=== PATIENT | female | born 1970 | race American Indian/Alaskan Native ===

== ENCOUNTER 2018-03-01 16:15 | Inpatient (IN) | payer OTHER ==
[2018-03-01] MEDS ORDERED: ACTIVASE ONE (16:18)
[2018-03-01] MEDS ORDERED: NACL 0.9% 0 ML ONE (16:19)
--- NOTE | 2018-03-01 16:28 | Emergency Department Report ---
ED Neuro Deficit HPI - General Chief Complaint: Weakness Stated Complaint: POSS STROKE Time Seen by Provider: 03/01/18 16:26 Source: patient, family, EMS (ems notes not available at time of chart dictation), RN notes reviewed Mode of arrival: Stretcher Limitations: Physical Limitation - History of Present Illness Initial Comments: This is a 47-year-old female who is unknown as provider previously, has a past medical history of hypothyroidism. Brought to the hospital by EMS as a possible code stroke. Patient complains of stuttering speech, and right-sided weakness and numbness. Last known well time is 3:05 PM. Symptoms constant, did not radiate anywhere, and did not have exacerbating or relieving factors. -: Sudden Location: speech, right arm, right leg Presenting Symptoms: Present: Weak/Paralyzed One Side, Unable to Speak Clearly History of same: No Place: other (driving) Severity: moderate Improves With: none Worsens With: none On Anticoagulants: No Context: sudden onset Associated Symptoms: headaches, malise, weakness. denies: confusion, chest pain , cough, diaphoresis, fever/chills, loss of appetite, nausea/vomiting, vertigo, seizures, shortness of breath, syncope - Related Data Home Medications: Home Medications Medication Instructions Recorded Confirmed Last Taken Synthroid 0.05 mcg PO DAILY 03/01/18 03/01/18 Unknown Allergies/Adverse Reactions: Allergies Allergy/AdvReac Type Severity Reaction Status Date / Time No Known Allergies Allergy Verified 03/01/18 16:40 ED Review of Systems ROS: Stated complaint: POSS STROKE Other details as noted in HPI Comment: All other systems reviewed and negative Cardiovascular: denies: chest pain Gastrointestinal: denies: abdominal pain, hematemesis, melena, hematochezia Neurological: headache, weakness, other Psychiatric: anxiety ED Past Medical Hx - Medications Home Medications: Home Medications Medication Instructions Recorded Confirmed Last Taken Type Synthroid 0.05 mcg PO DAILY 03/01/18 03/01/18 Unknown History ED Neuro Physical Exam - General Limitations: Physical Limitation General appearance: alert, anxious, obese Suspected Stroke: Yes - Head Head exam: Present: atraumatic - Eye Eye exam: Present: normal appearance, PERRL, EOMI, other (visual acuity intact to finger counting, color perception, reading at a close distance). Absent: nystagmus - ENT ENT exam: Present: normal exam, normal orophraynx, normal external ear exam - Neck Neck exam: Present: normal inspection, full ROM. Absent: tenderness, meningismus - Respiratory Respiratory exam: Present: normal lung sounds bilaterally. Absent: respiratory distress, wheezes, rales, rhonchi, stridor, decreased breath sounds - Cardiovascular Cardiovascular Exam: Present: regular rate, normal rhythm, normal heart sounds. Absent: systolic murmur, diastolic murmur, rubs, gallop - GI/Abdominal GI/Abdominal exam: Present: soft, normal bowel sounds. Absent: distended, tenderness, guarding, rigid, pulsatile mass - Extremities Exam Extremities exam: Present: normal inspection, full ROM, normal capillary refill , other (2+ pulses noted in the bilateral upper, lower extremities. Compartments soft. No long bony tenderness. The pelvis is stable.). Absent: calf tenderness - Back Exam Back exam: Present: normal inspection, full ROM. Absent: CVA tenderness (R), paraspinal tenderness - Neurological Exam Neurological exam: Present: alert, oriented X3, motor sensory deficit (there is 4 out of 5 strength right upper, right lower extremity. There is 5 out of 5 strength left upper, left lower extremity reports decreased sensation to light touch right upper, right lower extremity), other (extraocular movements are intact bilaterally. The tongue is midline. Shoulder shrug is intact bilaterally. Normal phonation. Normal elevation of the palate. Hearing intact bilaterally. Patient is able to speak in full sentences, but is stuttering.) - NIHSS Assessment Interval: Baseline 1a. Level of Consciousness: alert 1b. LOC Questions: answers correctly 1c. LOC Commands: performs tasks correctly 2. Best Gaze: normal 3. Visual: no visual loss 4. Facial Palsy: normal symmetrical movement 5b. Motor Arm Right: drift 5a. Motor Arm Left: no drift 6a. Motor Leg Left: no drift 6b. Motor Leg Right: drift 7. Limb Ataxia: present 1 limb 8. Sensory: mild/moderate sensory loss 9. Best Language: no aphasia 10. Dysarthria: mild/moderate dysarthria 11. Extinction/Inattention: no abnormality Total Score: 5 Stroke Severity: Moderate Stroke - Psychiatric Psychiatric exam: Present: anxious ED Course Vital Signs 03/01/18 16:43 Temperature 97.9 F Pulse Rate 68 Respiratory 16 Rate Blood Pressure 127/91 O2 Sat by Pulse 100 Oximetry - Lab Data Result diagrams: 03/01/18 16:35 03/01/18 16:35 Lab Results 03/01/18 03/01/18 03/01/18 Range/Units 16:35 16:35 16:35 WBC 6.6 (4.5-11.0) K/mm3 RBC 4.02 (3.65-5.03) M/mm3 Hgb 13.4 (10.1-14.3) gm/dl Hct 38.6 (30.3-42.9) % MCV 96 (79-97) fl MCH 33 H (28-32) pg MCHC 35 H (30-34) % RDW 13.5 (13.2-15.2) % Plt Count 204 (140-440) K/mm3 Lymph % (Auto) 38.7 H (13.4-35.0) % [place] % (Auto) 8.5 H (0.0-7.3) % Eos % (Auto) 2.3 (0.0-4.3) % Baso % (Auto) 0.6 (0.0-1.8) % Lymph # 2.5 (1.2-5.4) K/mm3 [place] # 0.6 (0.0-0.8) K/mm3 Eos # 0.2 (0.0-0.4) K/mm3 Baso # 0.0 (0.0-0.1) K/mm3 Seg Neutrophils % 49.9 (40.0-70.0) % Seg Neutrophils # 3.3 (1.8-7.7) K/mm3 PT 12.3 (12.2-14.9) Sec. INR 0.87 (0.87-1.13) APTT 27.4 (24.2-36.6) Sec. Thrombin Time (15.1-19.6) Sec. Sodium 142 (137-145) mmol/L Potassium 3.7 (3.6-5.0) mmol/L Chloride 105.7 (98-107) mmol/L Carbon Dioxide 24 (22-30) mmol/L Anion Gap 16 mmol/L BUN 15 (7-17) mg/dL Creatinine 0.8 (0.7-1.2) mg/dL Estimated GFR > 60 ml/min BUN/Creatinine Ratio 19 % Glucose 113 H (65-100) mg/dL POC Glucose (70-105) Calcium 9.0 (8.4-10.2) mg/dL Troponin T < 0.010 (0.00-0.029) ng/mL 03/01/18 03/01/18 Range/Units 16:35 16:40 WBC (4.5-11.0) K/mm3 RBC (3.65-5.03) M/mm3 Hgb (10.1-14.3) gm/dl Hct (30.3-42.9) % MCV (79-97) fl MCH (28-32) pg MCHC (30-34) % RDW (13.2-15.2) % Plt Count (140-440) K/mm3 Lymph % (Auto) (13.4-35.0) % [place] % (Auto) (0.0-7.3) % Eos % (Auto) (0.0-4.3) % Baso % (Auto) (0.0-1.8) % Lymph # (1.2-5.4) K/mm3 [place] # (0.0-0.8) K/mm3 Eos # (0.0-0.4) K/mm3 Baso # (0.0-0.1) K/mm3 Seg Neutrophils % (40.0-70.0) % Seg Neutrophils # (1.8-7.7) K/mm3 PT (12.2-14.9) Sec. INR (0.87-1.13) APTT (24.2-36.6) Sec. Thrombin Time 17.5 (15.1-19.6) Sec. Sodium (137-145) mmol/L Potassium (3.6-5.0) mmol/L Chloride (98-107) mmol/L Carbon Dioxide (22-30) mmol/L Anion Gap mmol/L BUN (7-17) mg/dL Creatinine (0.7-1.2) mg/dL Estimated GFR ml/min BUN/Creatinine Ratio % Glucose (65-100) mg/dL POC Glucose 102 (70-105) Calcium (8.4-10.2) mg/dL Troponin T (0.00-0.029) ng/mL - EKG Data -: EKG Interpreted by Me When compared to previous EKG there are: previous EKG unavailable 03/01/18 18:14 Sinus, 60 bpm, borderline left axis deviation, incomplete right bundle branch block, atrial enlargement, no chest pain, not a STEMI - Radiology Data Radiology results: report reviewed, image reviewed Noncontrast CT scan of the brain is negative - Medical Decision Making Differential diagnosis, including but not limited to: Migraine, Clarence paralysis, conversion disorder Assessment and plan: 47-year-old female with persistent stuttering and now resolved right upper extremity, right lower extremity weakness. She is currently speaking and slow sentences, only stuttering, but is not dysarthric per se. A code stroke is called overhead, a noncontrast CT scan of the brain is read as negative, and the patient is also interviewed by stroke neurologist, Dr. Mcclendon. Given that her symptoms have resolved with the exception of stuttering speech, which is very unlikely to be a true CVA, it is the recommendation of consulting neurology that the patient not be a TPA candidate. Given that she has no significant NIH score at this time, and is noted to be smiling and laughing with a friend/family member, I think that this plan of care is reasonable, especially given resolved weakness in the right upper, right lower extremity. The case is presented to the Hospital physician, Dr. Bri Ballesteros; he accepted the patient to his service. Not a TPA candidate given resolution of symptoms. Aspirin ordered. - Core Measures Measure Exclusions: not indicated - Thrombolytic Inclusion/Exclusion Thrombolytic Contraindications: Rapidily Improving s/s Critical care attestation.: If time is entered above; I have spent that time in minutes in the direct care of this critically ill patient, excluding procedure time. ED Disposition Clinical Impression: Speech disturbance, TIA (transient ischemic attack) Disposition: OP ADMIT IP TO THIS HOSP Is pt being admited?: Yes Does the pt Need Aspirin: Yes Condition: Good
--- NOTE | 2018-03-01 16:47 | Cat Scan Report ---
FINAL REPORT PROCEDURE: CT HEAD/BRAIN WO CON TECHNIQUE: Computerized tomography of the head was performed without contrast material. HISTORY: neuro deficits < 6hrs or sx present upon awakening COMPARISON: No prior studies are available for comparison. FINDINGS: Brain: Brain density appears normal. No evidence of intracranial hemorrhage. No parenchymal hemorrhage, mass lesions or mass effect are seen. No abnormal extraxial fluid collects or masses are seen. Ventricles: Ventricles are normal size and are midline. Bone Windows: No evidence of skull fracture. Paranasal sinuses: There is patchy mucosal disease in a few of the ethmoid air cells and minimally in the sphenoid sinuses and right maxillary sinus. Visualized portions of the paranasal sinuses otherwise appear clear. Mastoid air cells: Clear IMPRESSION: Negative unenhanced CT of the brain. If symptoms persist or worsen consider follow-up CT scan or MRI for further evaluation. Mild paranasal sinus disease as described.
[2018-03-01 16:49] LABS: Basophils % (Auto) 0.6 % (0.0-1.8); Eosinophils # (Auto) 0.2 K/mm3 (0.0-0.4); Eosinophils % (Auto) 2.3 % (0.0-4.3); Hematocrit 38.6 % (30.3-42.9); Hemoglobin 13.4 gm/dl (10.1-14.3); Lymphocytes # (Auto) 2.5 K/mm3 (1.2-5.4); Lymphocytes % (Auto) 38.7 % (13.4-35.0); Mean Corpuscular HGB Conc 35 % (30-34); Mean Corpuscular Hemoglobin 33 pg (28-32); Mean Corpuscular Volume 96 fl (79-97); Monocytes # (Auto) 0.6 K/mm3 (0.0-0.8); Monocytes % (Auto) 8.5 % (0.0-7.3); Platelet Count 204 K/mm3 (140-440); Red Blood Count 4.02 M/mm3 (3.65-5.03); Red Cell Distribution Width 13.5 % (13.2-15.2)
[2018-03-01 16:55] LABS: INR 0.87 (0.87-1.13)
[2018-03-01 16:56] LABS: Partial Thromboplastin Time 27.4 Sec. (24.2-36.6)
[2018-03-01 16:58] LABS: BUN/Creatinine Ratio 19; Blood Urea Nitrogen 15 mg/dL (7-17); Hemolysis Index 7
[2018-03-01] MEDS ORDERED: BABY ASPIRIN PO ONE (18:16)
--- NOTE | 2018-03-01 23:27 | History and Physical Report ---
History of Present Illness Date of examination: 03/01/18 Date of admission: 03/01/18 18:16 Chief complaint: Chief complaint: Right-sided weakness and dysarthria since 11:30 AM History of present illness: History of present illness: 47-year-old -[place] female with history of hypothyroidism comes in for right-sided weakness since 11:30 AM along with the dysarthria. The weakness is improved while in the emergency room but still persists. Dysarthria persists. Tele neurology was consulted. TPA was considered but not given because the neurology was in favor of TIA. No exacerbating or relieving factors Past History Past Medical History: hypothyroidism Past Surgical History: No surgical history Social history: no significant social history, lives with family, full code Family history: hypertension Medications and Allergies Allergies Allergy/AdvReac Type Severity Reaction Status Date / Time No Known Allergies Allergy Verified 03/01/18 16:40 Home Medications Medication Instructions Recorded Confirmed Last Taken Type Synthroid 0.05 mcg PO DAILY 03/01/18 03/01/18 Unknown History Review of Systems All systems: negative Constitutional: no weight loss, no weight gain, no fever, no chills Ears, nose, mouth and throat: no hoarseness, no sore throat, no swelling in mouth, no swelling in throat Breasts: deferred Cardiovascular: no chest pain, no orthopnea, no palpitations, no rapid/ irregular heart beat, no edema, no syncope, no lightheadedness, no shortness of breath Respiratory: no cough, no cough with sputum, no excessive sputum, no hemoptysis , no shortness of breath, no dyspnea on exertion Gastrointestinal: no nausea, no vomiting, no diarrhea, no constipation, no change in bowel habits Genitourinary Female: no dysuria, no urinary frequency, no urgency Musculoskeletal: no neck stiffness, no neck pain, no shooting arm pain, no arm numbness/tingling, no low back pain, no shooting leg pain, no leg numbness/ tingling, no redness of joints Integumentary: no rash, no pruritis, no redness, no sores, no wounds, no jaundice Neurological: paralysis, weakness, change in speech, gait dysfunction, no parathesias, no numbness, no tingling, no seizures, no syncope Psychiatric: no anxiety, no memory loss, no change in sleep habits, no sleep disturbances, no insomnia Endocrine: no cold intolerance, no heat intolerance, no polyphagia, no excessive thirst Hematologic/Lymphatic: no easy bruising, no easy bleeding Allergic/Immunologic: no urticaria, no allergic rhinitis, no wheezing Exam - Constitutional Vitals: Temp Pulse Resp BP Pulse Ox 98.2 F 73 16 124/95 98 03/01/18 21:55 03/01/18 21:54 03/01/18 20:11 03/01/18 21:54 03/01/18 21:54 General appearance: Present: no acute distress, well-nourished - EENT Eyes: Present: PERRL ENT: hearing intact, clear oral mucosa - Neck Neck: Present: supple, normal ROM - Respiratory Respiratory effort: normal Respiratory: bilateral: CTA - Cardiovascular Heart rate: 60 Rhythm: regular Heart Sounds: Present: S1 & S2. Absent: rub, click - Extremities Extremities: no ischemia, pulses intact, pulses symmetrical, No edema Peripheral Pulses: within normal limits - Abdominal General gastrointestinal: Present: soft, non-tender, non-distended, normal bowel sounds Female genitourinary: Present: normal - Integumentary Integumentary: Present: clear, warm, dry - Musculoskeletal Musculoskeletal: right sided weakness (right upper extremity and right lower extremity 3/5 power dysarthria present) - Psychiatric Psychiatric: appropriate mood/affect, intact judgment & insight - Neurologic Neurologic: CNII-XII intact, moves all extremities, other (gait instability) - Allied Health Allied health notes reviewed: nursing, case management Results - Labs CBC & Chem 7: 03/01/18 16:35 03/01/18 16:35 Labs: Laboratory Last Values WBC 6.6 K/mm3 (4.5-11.0) 03/01/18 16:35 RBC 4.02 M/mm3 (3.65-5.03) 03/01/18 16:35 Hgb 13.4 gm/dl (10.1-14.3) 03/01/18 16:35 Hct 38.6 % (30.3-42.9) 03/01/18 16:35 MCV 96 fl (79-97) 03/01/18 16:35 MCH 33 pg (28-32) H 03/01/18 16:35 MCHC 35 % (30-34) H 03/01/18 16:35 RDW 13.5 % (13.2-15.2) 03/01/18 16:35 Plt Count 204 K/mm3 (140-440) 03/01/18 16:35 Lymph % (Auto) 38.7 % (13.4-35.0) H 03/01/18 16:35 [place] % (Auto) 8.5 % (0.0-7.3) H 03/01/18 16:35 Eos % (Auto) 2.3 % (0.0-4.3) 03/01/18 16:35 Baso % (Auto) 0.6 % (0.0-1.8) 03/01/18 16:35 Lymph # 2.5 K/mm3 (1.2-5.4) 03/01/18 16:35 [place] # 0.6 K/mm3 (0.0-0.8) 03/01/18 16:35 Eos # 0.2 K/mm3 (0.0-0.4) 03/01/18 16:35 Baso # 0.0 K/mm3 (0.0-0.1) 03/01/18 16:35 Seg Neutrophils % 49.9 % (40.0-70.0) 03/01/18 16:35 Seg Neutrophils # 3.3 K/mm3 (1.8-7.7) 03/01/18 16:35 PT 12.3 Sec. (12.2-14.9) 03/01/18 16:35 INR 0.87 (0.87-1.13) 03/01/18 16:35 APTT 27.4 Sec. (24.2-36.6) 03/01/18 16:35 Thrombin Time 17.5 Sec. (15.1-19.6) 03/01/18 16:35 Sodium 142 mmol/L (137-145) 03/01/18 16:35 Potassium 3.7 mmol/L (3.6-5.0) 03/01/18 16:35 Chloride 105.7 mmol/L (98-107) 03/01/18 16:35 Carbon Dioxide 24 mmol/L (22-30) 03/01/18 16:35 Anion Gap 16 mmol/L 03/01/18 16:35 BUN 15 mg/dL (7-17) 03/01/18 16:35 Creatinine 0.8 mg/dL (0.7-1.2) 03/01/18 16:35 Estimated GFR > 60 ml/min 03/01/18 16:35 BUN/Creatinine Ratio 19 % 03/01/18 16:35 Glucose 113 mg/dL (65-100) H 03/01/18 16:35 POC Glucose 102 (70-105) 03/01/18 16:40 Calcium 9.0 mg/dL (8.4-10.2) 03/01/18 16:35 Troponin T < 0.010 ng/mL (0.00-0.029) 03/01/18 16:35 - Imaging and Cardiology EKG: report reviewed (normal sinus rhythm 60 per minute) Imaging and Cardiology: CT head IMPRESSION: Negative unenhanced CT of the brain. If symptoms persist or worsen consider follow-up CT scan or MRI for further evaluation. Mild paranasal sinus disease as described. Assessment and Plan Advance Directives: Yes (full code) VTE prophylaxis?: Chemical Plan of care discussed with patient/family: Yes - Patient Problems (1) Acute CVA (cerebrovascular accident) Current Visit: Yes Status: Acute Plan to address problem: Acute CVA versus TIA. More in favor of CVA or RIND(reversible ischemic neurological deficit) Aspirin and Plavix initiated MRI/MRA CDS and echocardiogram ordered (2) Hypothyroidism Current Visit: Yes Status: Chronic Qualifiers: Hypothyroidism type: acquired Qualified Code(s): E03.9 - Hypothyroidism, unspecified Plan to address problem: continue Synthroid Check TSH (3) DVT prophylaxis Current Visit: Yes Status: Acute Plan to address problem: Lovenox 40 mg subcutaneous daily
[2018-03-01] MEDS ORDERED: ZOFRAN IV PRN (23:37)
[2018-03-01] MEDS ORDERED: MORPHINE IV PRN (23:37)
[2018-03-01] MEDS ORDERED: PERCOCET 5/325 PO PRN (23:37)
[2018-03-01] MEDS ORDERED: AMBIEN PO PRN (23:37)
[2018-03-01] MEDS ORDERED: SODIUM CHLORIDE FLUSH SYRINGE 10 ML IV PRN (23:37)
[2018-03-02] MEDS: SYNTHROID PO SCH (06:18)
[2018-03-02 08:12] LABS: Basophils % (Auto) 0.5 % (0.0-1.8); Eosinophils # (Auto) 0.1 K/mm3 (0.0-0.4); Eosinophils % (Auto) 2.4 % (0.0-4.3); Hematocrit 40.4 % (30.3-42.9); Lymphocytes # (Auto) 2.1 K/mm3 (1.2-5.4); Lymphocytes % (Auto) 34.3 % (13.4-35.0); Mean Corpuscular HGB Conc 35 % (30-34); Mean Corpuscular Hemoglobin 33 pg (28-32); Mean Corpuscular Volume 96 fl (79-97); Monocytes # (Auto) 0.5 K/mm3 (0.0-0.8); Monocytes % (Auto) 7.6 % (0.0-7.3); Platelet Count 222 K/mm3 (140-440); Red Blood Count 4.23 M/mm3 (3.65-5.03); Red Cell Distribution Width 13.7 % (13.2-15.2)
[2018-03-02 08:32] LABS: Alanine Aminotransferase 13 units/L (7-56); BUN/Creatinine Ratio 17; Blood Urea Nitrogen 10 mg/dL (7-17); Calcium 9.2 mg/dL (8.4-10.2); Hemolysis Index 31
[2018-03-02] MEDS ORDERED: LEVOTHYROXINE PO SCH (10:00)
[2018-03-02] MEDS: ASPIRIN PO SCH (10:21)
[2018-03-02] MEDS: SODIUM CHLORIDE FLUSH SYRINGE 10 ML IV SCH ×2 (10:22→22:06)
[2018-03-02] MEDS: PLAVIX PO SCH (10:22)
[2018-03-02] MEDS: PEPCID PO SCH ×2 (10:22→22:06)
--- NOTE | 2018-03-02 13:48 | Progress Note ---
Assessment and Plan - Patient Problems (1) TIA (transient ischemic attack) Current Visit: Yes Status: Acute Plan to address problem: Patient has had a TIA. Still significant risk factors for CVA. Patient did take aspirin or refuse the Plavix. Therefore we'll continue aspirin. Would need to obtain lipid panel with goal of keeping LDL less than 70. Follow up at the [facility]. Patient was seen specialists for arm weakness and numbness. Spoke about risk factor reduction with weight loss exercise and a genetic component hyperlipidemia ratio has anticipated discharge in a.m. If MRI is normal. (2) Hypothyroidism Current Visit: Yes Status: Chronic Qualifiers: Hypothyroidism type: acquired Qualified Code(s): E03.9 - Hypothyroidism, unspecified History Interval history: Long discussion with patient about differences between TIA and CVA. Patient's symptoms have resolved. Lasted in total for approximately 3 hours. Patient still has increased risk factors including family history. Patient still has MRI pending and echo pending. Get those done today. Hospitalist Physical - Constitutional Vitals: Temp Pulse Resp BP Pulse Ox 98.1 F 68 18 119/90 97 03/02/18 08:33 03/02/18 08:33 03/02/18 08:33 03/02/18 08:33 03/02/18 12:47 General appearance: Present: no acute distress, well-nourished - EENT Eyes: Present: PERRL, EOM intact ENT: hearing intact, clear oral mucosa, dentition normal - Neck Neck: Present: supple, normal ROM - Respiratory Respiratory effort: normal Respiratory: bilateral: CTA - Cardiovascular Rhythm: regular Heart Sounds: Present: S1 & S2 - Extremities Extremities: no ischemia, pulses intact, pulses symmetrical, No edema, normal temperature, normal color, Full ROM Peripheral Pulses: within normal limits - Abdominal General gastrointestinal: soft, non-tender, non-distended, normal bowel sounds, no hypoactive bowel sounds, no absent bowel sounds, no hepatomegaly - Integumentary Integumentary: Present: clear, warm, dry. Absent: jaundice, rash, clammy - Psychiatric Psychiatric: appropriate mood/affect, intact judgment & insight, cooperative - Neurologic Neurologic: CNII-XII intact, no focal deficits, moves all extremities, other ( no focal deficits at all patient has regained strength 5 out of 5 upper and lower extremities.) Results - Labs CBC & Chem 7: 03/02/18 07:57 03/02/18 07:57 Labs: Laboratory Last Values WBC 6.1 K/mm3 (4.5-11.0) 03/02/18 07:57 RBC 4.23 M/mm3 (3.65-5.03) 03/02/18 07:57 Hgb 14.0 gm/dl (10.1-14.3) 03/02/18 07:57 Hct 40.4 % (30.3-42.9) 03/02/18 07:57 MCV 96 fl (79-97) 03/02/18 07:57 MCH 33 pg (28-32) H 03/02/18 07:57 MCHC 35 % (30-34) H 03/02/18 07:57 RDW 13.7 % (13.2-15.2) 03/02/18 07:57 Plt Count 222 K/mm3 (140-440) 03/02/18 07:57 Lymph % (Auto) 34.3 % (13.4-35.0) 03/02/18 07:57 [place] % (Auto) 7.6 % (0.0-7.3) H 03/02/18 07:57 Eos % (Auto) 2.4 % (0.0-4.3) 03/02/18 07:57 Baso % (Auto) 0.5 % (0.0-1.8) 03/02/18 07:57 Lymph # 2.1 K/mm3 (1.2-5.4) 03/02/18 07:57 [place] # 0.5 K/mm3 (0.0-0.8) 03/02/18 07:57 Eos # 0.1 K/mm3 (0.0-0.4) 03/02/18 07:57 Baso # 0.0 K/mm3 (0.0-0.1) 03/02/18 07:57 Seg Neutrophils % 55.2 % (40.0-70.0) 03/02/18 07:57 Seg Neutrophils # 3.4 K/mm3 (1.8-7.7) 03/02/18 07:57 PT 12.3 Sec. (12.2-14.9) 03/01/18 16:35 INR 0.87 (0.87-1.13) 03/01/18 16:35 APTT 27.4 Sec. (24.2-36.6) 03/01/18 16:35 Thrombin Time 17.5 Sec. (15.1-19.6) 03/01/18 16:35 Sodium 141 mmol/L (137-145) 03/02/18 07:57 Potassium 4.2 mmol/L (3.6-5.0) 03/02/18 07:57 Chloride 104.0 mmol/L (98-107) 03/02/18 07:57 Carbon Dioxide 26 mmol/L (22-30) 03/02/18 07:57 Anion Gap 15 mmol/L 03/02/18 07:57 BUN 10 mg/dL (7-17) 03/02/18 07:57 Creatinine 0.6 mg/dL (0.7-1.2) L 03/02/18 07:57 Estimated GFR > 60 ml/min 03/02/18 07:57 BUN/Creatinine Ratio 17 % 03/02/18 07:57 Glucose 84 mg/dL (65-100) 03/02/18 07:57 POC Glucose 102 (70-105) 03/01/18 16:40 Hemoglobin A1c 5.3 % (4-6) 03/02/18 00:10 Calcium 9.2 mg/dL (8.4-10.2) 03/02/18 07:57 Total Bilirubin 1.50 mg/dL (0.1-1.2) H 03/02/18 07:57 AST 20 units/L (5-40) 03/02/18 07:57 ALT 13 units/L (7-56) 03/02/18 07:57 Alkaline Phosphatase 59 units/L (35-129) 03/02/18 07:57 Troponin T < 0.010 ng/mL (0.00-0.029) 03/01/18 16:35 Total Protein 6.6 g/dL (6.3-8.2) 03/02/18 07:57 Albumin 4.0 g/dL (3.9-5) 03/02/18 07:57 Albumin/Globulin Ratio 1.5 % 03/02/18 07:57 TSH 3.060 mlU/mL (0.270-4.200) 03/02/18 00:10
[2018-03-03] MEDS: TYLENOL PO PRN ×2 (04:54→10:39)
[2018-03-03 06:52] LABS: Chol/HDL Ratio 2.8 %
[2018-03-03] MEDS: SYNTHROID PO SCH (06:52)
--- NOTE | 2018-03-03 10:06 | Magnetic Resonance Report ---
MRI OF THE BRAIN WITHOUT CONTRAST: HISTORY: CVA PROCEDURE: Multiplanar, multisequence MR imaging of the brain without IV contrast was performed. FINDINGS: Compared to the CT head dated 03/01/18. MRI reveals 3 tiny areas of diffusion restriction in the cerebellum. On image 13, there are 2 millimetric foci of diffusion restriction in the superior right cerebellum measuring less than 5 mm. On image 12, a solitary 3 mm focus of diffusion restriction is identified in the superior-lateral left cerebellum. No additional areas of diffusion restriction are identified. The brain parenchyma is within normal limits on the remaining sequences. The hyatt-white interface is well defined. No evidence for hemorrhage or mass. No chronic infarct or extra-axial fluid collection. The midline structures are central. The basal cisterns are patent. Normal ventricular size. The orbital cavities and sella turcica demonstrate no abnormality. Mild mucosal thickening is present throughout the paranasal sinuses. The mastoid air cells are well-aerated. IMPRESSION: 3 small foci are subacute ischemia are identified in the superior cerebellum as described above.
--- NOTE | 2018-03-03 10:07 | Magnetic Resonance Report ---
MRA HEAD WITHOUT CONTRAST HISTORY: CVA. [id number] imaging with MIP reformations of the [place] is submitted. The arteries appear widely patent and free of hemodynamically significant stenosis, aneurysm or dissection. IMPRESSION: Unremarkable MRA head.
--- NOTE | 2018-03-03 10:20 | Progress Note ---
Assessment and Plan - Subacute stroke per MRI report CT and MRA of head were normal. ECHO showed nl EF Continue with ASA, Plavix, Atorvastatin, Neurocheck Q2 hrs, PT eval and treatment Pt's Speech is now normal - Hyperlipedemia on Statin - Headache Hydrocordon May obtain repeat CT head - Hypothyropidism Continue with Levothyroid - DVT prophylaxis Lovenox - Disposition: If headache continues will get repeat CT head If PT eval and treatment is okay and GALVAN resolves, pt may go home in 1-2 days Discussed at length with pt and answered all questions to her satisfaction. Subjective Date of service: 03/03/18 Principal diagnosis: subacute stroke with righ tsided weakness Interval history: Still has right sided weakness. No headache or fever Objective - Constitutional Vitals: Vital Signs - 12hr 03/03/18 03/03/18 03/03/18 00:45 04:26 07:35 Temperature 98.5 F 97.8 F 98.0 F Pulse Rate 72 68 58 L Respiratory 16 16 20 Rate Blood Pressure 122/83 110/80 Blood Pressure 112/81 [Left] O2 Sat by Pulse 97 99 98 Oximetry General appearance: Present: no acute distress, well-nourished - EENT Eyes: PERRL, EOM intact ENT: hearing intact, clear oral mucosa Ears: bilateral: normal - Neck Neck: supple, normal ROM - Respiratory Respiratory effort: normal Respiratory: bilateral: CTA - Cardiovascular Rhythm: regular Heart Sounds: Present: S1 & S2. Absent: gallop, rub Extremities: pulses intact, No edema, normal color, Full ROM - Gastrointestinal General gastrointestinal: Present: soft, non-tender, non-distended, normal bowel sounds - Genitourinary Female genitourinary: deferred - Integumentary Integumentary: clear, warm, dry - Musculoskeletal Musculoskeletal: 1, strength equal bilaterally - Neurologic Neurologic: CNII-XII intact, focal deficits (strenght in the right arm 3-4/5), moves all extremities - Psychiatric Psychiatric: memory intact, appropriate mood/affect, intact judgment & insight - Labs CBC & Chem 7: 03/02/18 07:57 03/02/18 07:57 Labs: Abnormal lab results 03/03/18 Range/Units 05:04 Cholesterol 210 H (50-199) mg/dL LDL Cholesterol Direct 152 H (50-130) mg/dL HDL Cholesterol 75 H (40-59) mg/dL
[2018-03-03] MEDS: ASPIRIN PO SCH (10:39)
[2018-03-03] MEDS: PEPCID PO SCH ×2 (10:39→22:36)
[2018-03-03] MEDS: PLAVIX PO SCH (10:39)
[2018-03-03] MEDS: SODIUM CHLORIDE FLUSH SYRINGE 10 ML IV SCH ×2 (10:41→22:37)
[2018-03-03] MEDS ORDERED: SYNTHROID PO SCH (11:00)
[2018-03-03] MEDS: NORCO 7.5/325 PO PRN (20:18)
--- NOTE | 2018-03-03 21:56 | Cat Scan Report ---
FINAL REPORT EXAM: CT HEAD/BRAIN WO CON HISTORY: Headache left side TECHNIQUE: Axial noncontrast CT images of the brain Comparison: 03/01/2018 Total exam DLP 805.42 mGy-cm FINDINGS: There is normal hyatt-white differentiation without midline shift or mass effect. There are no acute extra-axial fluid collections or intraparenchymal blood products. Ventricles and cisterns have normal size and configuration. Posterior fossa is unremarkable. Orbital cones and apices are unremarkable. Conjugate gaze. There is bilateral ethmoid air cell scattered opacification. The remaining imaged paranasal sinuses are clear. No displaced calvarial fracture. IMPRESSION: Ethmoid sinusitis. No CT evidence of transcortical infarct, bleed, or mass identified. If symptoms persist, recommend MRI brain with diffusion-weighted imaging.
[2018-03-04] MEDS: NORCO 7.5/325 PO PRN (00:20)
[2018-03-04] MEDS: SYNTHROID PO SCH (06:13)
[2018-03-04] MEDS ORDERED: DULCOLAX PR PRN (11:00)
[2018-03-04] MEDS: PLAVIX PO SCH (11:12)
[2018-03-04] MEDS: PEPCID PO SCH ×2 (11:21→21:44)
[2018-03-04] MEDS: ASPIRIN PO SCH (11:22)
[2018-03-04] MEDS: FLEXERIL PO PRN ×2 (11:24→21:49)
--- NOTE | 2018-03-04 16:04 | Progress Note ---
Assessment and Plan Assessment and plan: Patient is a 47 yo woman with a history of hypothyroidism and chronic LBP with herniated disk at the [facility] last month who presented with right sided weakness and abnormal speech -Acute CVA (cerebrovascular accident), confirmed by MRI (subacute radiologist time frame but Acute CVA based on symptoms) Aspirin and Plavix initiated MRI/MRA CDS and echocardiogram reviewed -Hypothyroidism Current Visit: Yes Status: Chronic Qualifiers: Hypothyroidism type: acquired Qualified Code(s): E03.9 - Hypothyroidism, unspecified Plan to address problem: continue Synthroid Check TSH=>normal -DVT prophylaxis Current Visit: Yes Status: Acute Plan to address problem: Lovenox 40 mg subcutaneous daily - Hyperlipedemia on Statin - Headache pain control related to stroke - Hypothyropidism Continue with Levothyroid - DVT prophylaxis Lovenox Low back spasm: add flexeril Constipation: give dulcolax Awaiting PT recommendations History Interval history: Patient was seen and examined. Follow-up on current diagnosis of right side weakness, improved. Overnight uneventful. Patient denies any chest pain, shortness breath, nausea/vomiting. Imaging, nursing note, chart, labs and old chart reviewed. Discussed with patient; pt c/o lbp with spasms and mild headaches Hospitalist Physical - Physical exam Narrative exam: GEN: WDWN, NAD, Awake, Alert, Orientated x 3 HEENT: NCAT, EOMI, PERRL, OP Clear NECK: supple, no adenopathy, no thyromegaly, no JVD CVS/HEART: RRR, normal S1S2, pulses present bilaterally CHEST/LUNGS: CTA B, Symmetrical chest expansion, good air entry bilaterally GI/Abdomen: soft, NTND, good bowel sounds, no guarding or rebound /Bladder: no suprapubic tenderness, no CVA or paraspinal tenderness EXT/Skin: no c/c/e, no obvious rash MSK: FROM x 4 Neuro: CN 2-12 grossly intact, no new focal deficits, gait is unsteady, and right sided is 4/5 and 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 Psych: calm - Constitutional Vitals: Temp Pulse Resp BP Pulse Ox 98.3 F 68 0 L 131/86 98 03/04/18 11:54 03/04/18 11:54 03/04/18 11:54 03/04/18 11:54 03/04/18 11:54 General appearance: Present: no acute distress, well-nourished Results - Labs CBC & Chem 7: 03/02/18 07:57 03/02/18 07:57 Labs: Laboratory Last Values WBC 6.1 K/mm3 (4.5-11.0) 03/02/18 07:57 RBC 4.23 M/mm3 (3.65-5.03) 03/02/18 07:57 Hgb 14.0 gm/dl (10.1-14.3) 03/02/18 07:57 Hct 40.4 % (30.3-42.9) 03/02/18 07:57 MCV 96 fl (79-97) 03/02/18 07:57 MCH 33 pg (28-32) H 03/02/18 07:57 MCHC 35 % (30-34) H 03/02/18 07:57 RDW 13.7 % (13.2-15.2) 03/02/18 07:57 Plt Count 222 K/mm3 (140-440) 03/02/18 07:57 Lymph % (Auto) 34.3 % (13.4-35.0) 03/02/18 07:57 [place] % (Auto) 7.6 % (0.0-7.3) H 03/02/18 07:57 Eos % (Auto) 2.4 % (0.0-4.3) 03/02/18 07:57 Baso % (Auto) 0.5 % (0.0-1.8) 03/02/18 07:57 Lymph # 2.1 K/mm3 (1.2-5.4) 03/02/18 07:57 [place] # 0.5 K/mm3 (0.0-0.8) 03/02/18 07:57 Eos # 0.1 K/mm3 (0.0-0.4) 03/02/18 07:57 Baso # 0.0 K/mm3 (0.0-0.1) 03/02/18 07:57 Seg Neutrophils % 55.2 % (40.0-70.0) 03/02/18 07:57 Seg Neutrophils # 3.4 K/mm3 (1.8-7.7) 03/02/18 07:57 PT 12.3 Sec. (12.2-14.9) 03/01/18 16:35 INR 0.87 (0.87-1.13) 03/01/18 16:35 APTT 27.4 Sec. (24.2-36.6) 03/01/18 16:35 Thrombin Time 17.5 Sec. (15.1-19.6) 03/01/18 16:35 Sodium 141 mmol/L (137-145) 03/02/18 07:57 Potassium 4.2 mmol/L (3.6-5.0) 03/02/18 07:57 Chloride 104.0 mmol/L (98-107) 03/02/18 07:57 Carbon Dioxide 26 mmol/L (22-30) 03/02/18 07:57 Anion Gap 15 mmol/L 03/02/18 07:57 BUN 10 mg/dL (7-17) 03/02/18 07:57 Creatinine 0.6 mg/dL (0.7-1.2) L 03/02/18 07:57 Estimated GFR > 60 ml/min 03/02/18 07:57 BUN/Creatinine Ratio 17 % 03/02/18 07:57 Glucose 84 mg/dL (65-100) 03/02/18 07:57 POC Glucose 102 (70-105) 03/01/18 16:40 Hemoglobin A1c 5.3 % (4-6) 03/02/18 00:10 Calcium 9.2 mg/dL (8.4-10.2) 03/02/18 07:57 Total Bilirubin 1.50 mg/dL (0.1-1.2) H 03/02/18 07:57 AST 20 units/L (5-40) 03/02/18 07:57 ALT 13 units/L (7-56) 03/02/18 07:57 Alkaline Phosphatase 59 units/L (35-129) 03/02/18 07:57 Troponin T < 0.010 ng/mL (0.00-0.029) 03/01/18 16:35 Total Protein 6.6 g/dL (6.3-8.2) 03/02/18 07:57 Albumin 4.0 g/dL (3.9-5) 03/02/18 07:57 Albumin/Globulin Ratio 1.5 % 03/02/18 07:57 Triglycerides 59 mg/dL (2-149) 03/03/18 05:04 Cholesterol 210 mg/dL (50-199) H 03/03/18 05:04 LDL Cholesterol Direct 152 mg/dL (50-130) H 03/03/18 05:04 HDL Cholesterol 75 mg/dL (40-59) H 03/03/18 05:04 Cholesterol/HDL Ratio 2.80 % 03/03/18 05:04 TSH 3.060 mlU/mL (0.270-4.200) 03/02/18 00:10
[2018-03-04] MEDS: SODIUM CHLORIDE FLUSH SYRINGE 10 ML IV SCH (21:45)
[2018-03-05] MEDS: SYNTHROID PO SCH (06:22)
[2018-03-05 06:37] VITALS: BP 120/83
[2018-03-05] MEDS: ASPIRIN PO SCH (10:11)
[2018-03-05] MEDS: PLAVIX PO SCH (10:12)
[2018-03-05] MEDS: PEPCID PO SCH (10:12)
[2018-03-05] MEDS: SODIUM CHLORIDE FLUSH SYRINGE 10 ML IV SCH (10:14)
--- NOTE | 2018-03-05 10:46 | Discharge Summary ---
Providers - Providers Date of Admission: 03/01/18 18:16 Date of discharge: 03/05/18 Attending physician: JESSY MORAN 03/01/18 16:27 Consult to Physician [CONS] Urgent Comment: Consulting Provider: AMA SPEARS Physician Instructions: Reason For Exam: cva 03/03/18 19:21 Physical Therapy Evaluation and Treat [CONS] Urgent Comment: Reason For Exam: subacute stroke Primary care physician: [employer] TECHNICIAN Hospitalization Condition: Stable Hospital course: Patient is a 47 yo woman with a history of hypothyroidism and chronic LBP with herniated disk at the [facility] last month who presented with right sided weakness and abnormal speech Mri brain without contrast IMPRESSION: 3 small foci are subacute ischemia are identified in the superior cerebellum as described above. -Acute CVA (cerebrovascular accident), confirmed by MRI (subacute radiologist time frame but Acute CVA based on symptoms) Aspirin and Plavix initiated MRI/MRA CDS and echocardiogram reviewed Patient intolerated to Lipitor with sob and feeling ill. -Hypothyroidism Current Visit: Yes Status: Chronic Qualifiers: Hypothyroidism type: acquired Qualified Code(s): E03.9 - Hypothyroidism, unspecified Plan to address problem: continue Synthroid Check TSH=>normal -DVT prophylaxis Current Visit: Yes Status: Acute Plan to address problem: Lovenox 40 mg subcutaneous daily - Hyperlipedemia on Statin - Headache pain control related to stroke - Hypothyropidism Continue with Levothyroid - DVT prophylaxis Lovenox Low back spasm: added flexeril which helped Constipation: gave dulcolax suppository which helped Awaiting PT recommendations==>home pt Disposition: DC/[place]-06 HOME UNDER HOME [facility] Time spent for discharge: 35 minutes Core Measure Documentation - Palliative Care Palliative Care/ Comfort Measures: Not Applicable - Core Measures Any of the following diagnoses?: stroke - VTE Discharge Requirements Deep Vein Thrombosis/Pulmonary Embolism Present on Admission: No Has pt received <5 days of overlap therapy or INR<2.0: No Anticoagulant overlap therapy prescribed at discharge: No Contraindication No Overlap Therapy order at DC: Not Indicated - Stroke Discharge Requirements Statin for LDL = or >70 mg/dl on DC: No Reason for no statin on DC: Drug Intolerance Anticoag for atrial fib/atrial flutter: Not Applicable Reason for no anticoag for AF/F on DC: Not Indicated Antithrombotic for ischemic stroke: Yes Exam - Physical Exam Narrative exam: GEN: WDWN, NAD, Awake, Alert, Orientated x 3 HEENT: NCAT, EOMI, PERRL, OP Clear NECK: supple, no adenopathy, no thyromegaly, no JVD CVS/HEART: RRR, normal S1S2, pulses present bilaterally CHEST/LUNGS: CTA B, Symmetrical chest expansion, good air entry bilaterally GI/Abdomen: soft, NTND, good bowel sounds, no guarding or rebound /Bladder: no suprapubic tenderness, no CVA or paraspinal tenderness EXT/Skin: no c/c/e, no obvious rash MSK: FROM x 4 Neuro: CN 2-12 grossly intact, no new focal deficits, gait is unsteady, and right sided is 4/5 and 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 Psych: calm - Constitutional Vitals: Temp Pulse Resp BP Pulse Ox 98.0 F 71 20 120/83 99 03/05/18 05:02 03/05/18 05:02 03/05/18 05:02 03/05/18 05:02 03/05/18 05:02 Plan Activity: no driving until cleared by PCP, up only with assistance, fall precautions, other (no strenous activity unless cleared by PCP) Diet: low salt Follow up with: PRIMARY CARE, [Primary Care Provider] - 7 Days YI PINEDA MD [Staff Physician] - 7 Days Prescriptions: Acetaminophen [Acetaminophen TAB] 325 mg PO Q4H PRN #10 tablet PRN Reason: Pain MILD(1-3)/Fever >100.5/GALVAN Aspirin [Aspirin TAB] 325 mg PO QDAY #30 tablet Cyclobenzaprine [Flexeril 10 MG TAB] 10 mg PO Q8H PRN #15 tablet PRN Reason: Muscle Spasm Famotidine [Pepcid] 20 mg PO BID #60 tablet HYDROcodone/APAP 7.5-325 [Ford 7.5-325 mg TAB] 1 each PO Q4H PRN #12 tablet PRN Reason: Pain , Severe (7-10) Polyethylene Glycol 3350 [Miralax 3350] 17 gm PO QDAY PRN #1 bottle PRN Reason: Constipation
--- NOTE | 2018-03-07 09:07 | Vascular Lab Report ---
CAROTID DUPLEX STUDY: RIGHT PSVEDV CCA PROX:6816 CCA DIST:6122 ICA PROX:5620 ICA MID:6231 ICA DIST:6630 ECA: [id number] VERT: 48 17 LEFT PSVEDV CCA PROX:6916 CCA DIST:6823 ICA PROX:4722 ICA MID:6128 ICA DIST:6829 ECA: 5314 VERT: 41 17 REASON FOR EXAM: Carotid artery stenosis. COMMENTS ON THE RIGHT: Doppler frequency analysis is consistent with 16 to 49 percent diameter reduction of the internal carotid artery. Minimal amount of plaque is seen. The common carotid artery is patent. The external carotid artery is patent. The vertebral artery has antegrade flow. COMMENTS ON THE LEFT: Doppler frequency analysis is consistent with 16 to 49 percent diameter reduction of the internal carotid artery. Minimal amount of plaque is seen. The common carotid artery is patent. The external carotid artery is patent. The vertebral artery has antegrade flow. IMPRESSION: Less than 50% diameter reduction in the internal carotid arteries bilaterally.
== END 2018-03-05 13:30 | disposition home health service (06) | DRG 65 ==
LOC: ED 16:15 → 4A 18:16
PROVIDERS: ADMIT Internal Medicine; ATTEND Internal Medicine
DX: I63.9 Cerebral infarction, unspecified (principal); G81.91 Hemiplegia, unspecified affecting right dominant side; E03.9 Hypothyroidism, unspecified; E78.5 Hyperlipidemia, unspecified; R25.2 Cramp and spasm; K59.00 Constipation, unspecified; F41.9 Anxiety disorder, unspecified; Z82.49 Family history of ischemic heart disease and other diseases of the circulatory system
CPT/HCPCS: 36415; 70450; 70544; 70551; 80048; 80053; 80061; 82962; 83036; 84443; 84484; 85025; 85610; 85670; 85730; 93005; 93010; 93306; 93880; A9270-GY; J2997